=== PATIENT | male | born 1950 | race Caucasian/White ===

== ENCOUNTER 2020-11-09 11:28 | Day surgery (SDC) | payer MEDICARE ==
[~2020-11-09] VITALS: Ht 172.7 cm; Wt 87.2 kg
[~2020-11-09 11:28] MED LIST: ARTHROTEC 550 MG/TAB PO; ASPIRIN 32325 MG/TAB PO; B COMPLEX #11 TA1 PO; CIPRO 500MG TA500 MG PO; CRANBERRY1 POW PO; HCTZ 25MG TAB25 MG PO; MULTIPLE VITAMI1 CAP PO; NATURAL SAW PA160 MG PO; NORCO 325 MG-101 TAB PO; PERCOCET 325 MG1 TA2 PO; SENOKOT S 50 MG1 TAB PO; TENORMIN 5050 MG/TAB PO; VITAMIN C500 MG PO; [UNRECOGNIZED DRUG - OTHER] PO
[2020-11-09] MEDS ORDERED: NORVASC 10MG10 MG PO (11:56)
[2020-11-09] MEDS ORDERED: ARTHROTEC 775 MG/TAB PO (11:56)
[2020-11-09] MEDS ORDERED: NORCO 325 MG-101 TAB PO (11:58)
[2020-11-09] MEDS ORDERED: NORVASC2.5 MG PO (11:59)
[2020-11-09] MEDS ORDERED: ASPIRIN 32325 MG/TAB PO (11:59)
[2020-11-09 12:16] VITALS: BP 128/81; PULSE 86; TEMP 98.6
[2020-11-09 13:57] VITALS: BP 119/98; PULSE 90; TEMP 97.6
--- NOTE | 2020-11-09 13:57 | NUR ---
TO RM 7 PER CART FROM OR. ALERT ORIENTED X 3, TALKING TO STAFF AND . REFUSED TO EAT OR DRINK ANYTHING AT THIS TIME. C/O PAIN 02/05. DENIES NAUSEA
[2020-11-09 14:15] VITALS: BP 132/97; PULSE 84
--- NOTE | 2020-11-09 14:15 | NUR ---
DRESSINGS CLEAN DRY INTACT. RECEIVED OJ AND TOLERATED WELL. DR ROGERS INTO TALK TO PATIENT AND HIS .
[2020-11-09 14:30] VITALS: BP 139/86; PULSE 84
--- NOTE | 2020-11-09 14:30 | NUR ---
C/O PAIN 03/08- RECEIVED NORCO ORDERED
[2020-11-09 14:40] VITALS: BP 139/86; PULSE 78
--- NOTE | 2020-11-09 14:40 | NUR ---
STATED THE PAIN IS BETTER AND ASKING TO GO HOME. C/O PAIN 01/06 RECEIVED DISCHARGE INSTRUCTIONS WITH AT BEDSIDE.
--- NOTE | 2020-11-09 14:50 | NUR ---
DISCHARGED PER WC BY NURSING STAFF TO PRIVATE CAR IN CARE OF ANGELA.
== END 2020-11-09 15:19 | disposition home or self-care (01) ==
LOC: SDCO 11:28
DX: C09.9 Malignant neoplasm of tonsil, unspecified (principal); C77.0 Secondary and unspecified malignant neoplasm of lymph nodes of head, face and neck; I10 Essential (primary) hypertension; G47.33 Obstructive sleep apnea (adult) (pediatric); M25.552 Pain in left hip; M25.551 Pain in right hip; M25.562 Pain in left knee; M25.561 Pain in right knee; Z85.46 Personal history of malignant neoplasm of prostate; Z79.82 Long term (current) use of aspirin; Z85.820 Personal history of malignant melanoma of skin; Z79.1 Long term (current) use of non-steroidal anti-inflammatories (NSAID); Z79.899 Other long term (current) drug therapy; Z98.62 Peripheral vascular angioplasty status; Z79.891 Long term (current) use of opiate analgesic
CPT/HCPCS: C1788; J0690; J1644; J2704; J7120

== ENCOUNTER 2021-01-11 05:34 | Day surgery (SDC) | payer MEDICARE ==
[~2021-01-11] VITALS: Ht 170.2 cm; Wt 74.3 kg
[~2021-01-11 05:34] MED LIST changes: +ARTHROTEC 775 MG/TAB PO; +NORVASC 10MG10 MG PO; +NORVASC2.5 MG PO
[2021-01-11 06:34] LABS: HEMOGLOBIN 10.4 g/dl (13.5-18.0); MEAN CELL VOLUME 94 fl (80.0-100.0); MEAN CORPUSCULAR HEMOGLOBIN 31 pg (27.0-31.0); MEAN CORPUSCULAR HGB CONC 33 g/dl (33.0-37.0); MEAN PLATELET VOLUME 9.1 fl (7.4-10.4); PLATELET COUNT 387 K/mm3 (130-400); RED BLOOD COUNT 3.37 M/mm3 (4.20-5.60)
[2021-01-11 06:38] VITALS: BP 118/69; PULSE 109; TEMP 98.2
[2021-01-11 06:39] LABS: HEMATOCRIT 31.8 % (42.0-52.0)
[2021-01-11] MEDS ORDERED: ROXICODONE 55 MG/TAB PO (06:47)
[2021-01-11 07:01] LABS: ALBUMIN 3.8 gm/dL (3.5-5.0); MAGNESIUM 2.3 mg/dL (1.6-2.3)
[2021-01-11 07:38] LABS: BAND 5 % (0-10); LYMPHOCYTE 1 % (20.0-51.0); NEUTROPHILS 91 % (42.0-75.2)
[2021-01-11 07:39] LABS: ANISOCYTOSIS 1+; PLATELET ESTIMATE NORMAL (NORMAL)
[2021-01-11 07:53] VITALS: BP 113/62; PULSE 89; TEMP 97.8
--- NOTE | 2021-01-11 07:53 | NUR ---
TO RM 8 PER CART FROM OR. ALERT ORIENTED X3, TALKING TO STAFF. RECEIVED WATER AND TAKING SIPS.
[2021-01-11 08:10] VITALS: BP 97/64; PULSE 93
--- NOTE | 2021-01-11 08:10 | NUR ---
SISTER AT BEDSIDE. CONTINUES TO TAKE SIPS.
[2021-01-11 08:25] VITALS: BP 117/69; PULSE 85
--- NOTE | 2021-01-11 08:25 | NUR ---
RESTING QUIETLY AND TALKING TO SISTER.
[2021-01-11 08:30] VITALS: BP 121/72; PULSE 85
--- NOTE | 2021-01-11 08:42 | NUR ---
ROCKY THE DISPLAY DECORATOR TALKING WITH PATIENT AND SISTER. MERARI FROM [employer] TALKING WITH PATIENT AND SISTER.
[2021-01-11 09:10] VITALS: BP 126/67; PULSE 85
[2021-01-11 09:24] LABS: ALBUMIN 3.8 gm/dL (3.5-5.0); BILIRUBIN,TOTAL 0.3 mg/dL (0.0-1.0); CALCIUM 9.4 mg/dL (8.4-10.2); CREATININE, serum 2.62 (0.66-1.25); POTASSIUM 4.5 mmol/L (3.4-5.0); TOTAL PROTEIN 7.5 gm/dL (6.4-8.2)
--- NOTE | 2021-01-11 09:30 | NUR ---
RECEIVED INSTRUCTIONS OF HOW TO USE PEG TUBE. PATIENT AND SISTER VERBALIZED UNDERSTANDING. RECEIVED 60CC SYRINGES X2 CUPS AND MED CUPS.
--- NOTE | 2021-01-11 09:45 | NUR ---
RECEIVED DISCHARGE INSTRUCTIONS AND VERBALIZED UNDERSTANDING. SISTER AT BEDSIDE DURING ALL THE INSTRUCTIONS.
--- NOTE | 2021-01-11 09:50 | NUR ---
FLUSHED PORT WITH NS 10CC FOLLOWED BY HEPARIN 500UNITS AND COVERED WITH BANDAID.
--- NOTE | 2021-01-11 10:14 | NUR ---
DISCHARGED PER WC BY NURSING STAFF TO PRIVATE CAR IN CARE OF SISTER.
--- NOTE | 2021-01-11 11:01 | NUR ---
LABS FAXED TO DR OWENS OFFICE
--- NOTE | 2021-01-11 15:53 | NUR ---
Donor Relations Manager consulted for the patient due to having peg tub placed. EVA met with the patient and his sister, [place]. Dietitian, Cecy present and provided education. The patient is independent and declined home health services. The patient states his , Leesa and sister will provide support if needed. Enteral feeding order to be sent to [facility]. Referral sent. 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 There are no additional needs.
== END 2021-01-11 10:18 | disposition home or self-care (01) ==
LOC: SDCO 05:34
PROVIDERS: Internal Medicine; Surgery
DX: R13.19 Other dysphagia (principal); C09.9 Malignant neoplasm of tonsil, unspecified; C77.0 Secondary and unspecified malignant neoplasm of lymph nodes of head, face and neck; R63.4 Abnormal weight loss; I10 Essential (primary) hypertension; M19.90 Unspecified osteoarthritis, unspecified site; G89.29 Other chronic pain; M54.9 Dorsalgia, unspecified; Z79.891 Long term (current) use of opiate analgesic; Z79.899 Other long term (current) drug therapy; Z79.82 Long term (current) use of aspirin; Z85.46 Personal history of malignant neoplasm of prostate; Z80.8 Family history of malignant neoplasm of other organs or systems; Z80.3 Family history of malignant neoplasm of breast; Z83.3 Family history of diabetes mellitus
CPT/HCPCS: J1644; J2405; J2704; J3010; J7120

== ENCOUNTER → 2021-08-02 | Outpatient (CLI) | payer MEDICARE ==
[~2021-08-02] MED LIST changes: +ROXICODONE 55 MG/TAB PO
== END ==
LOC: COL.RAD 11:25
DX: N28.1 Cyst of kidney, acquired (principal); N18.4 Chronic kidney disease, stage 4 (severe)

== ENCOUNTER → 2022-07-17 | Outpatient (CLI) | payer MEDICARE ==
[~2022-07-17] MED LIST changes: +PRIL40 PO
== END ==
LOC: COL.RAD 13:32
DX: Z43.1 Encounter for attention to gastrostomy (principal); N28.1 Cyst of kidney, acquired
CPT/HCPCS: J2405; J2704; J3010

== ENCOUNTER 2022-07-18 08:24 | Day surgery (SDC) | payer MEDICARE ==
[~2022-07-18] VITALS: Ht 172.7 cm; Wt 70.0 kg
[~2022-07-18 08:24] MED LIST changes: -PRIL40 PO
[2022-07-18] MEDS ORDERED: PRIL40 PO (08:57)
--- NOTE | 2022-07-18 08:58 | NUR ---
Dr. Gallardo in the room and PEG tube removed. Unable to place new tube. Will have to go the OR for EGD and gastrostomy tube placement.
--- NOTE | 2022-07-18 09:30 | NUR ---
Port a catheter accessed and blood returned. 1000cc's LR infusing at O. Patient readied for surgery and consent signed. Spouse informed.
[2022-07-18 09:54] VITALS: BP 147/90; PULSE 65; TEMP 97.9
[2022-07-18 10:25] VITALS: BP 108/77; PULSE 82
--- NOTE | 2022-07-18 10:25 | NUR ---
Patient returns to room 6 per cart after EGD with peg tube replacement. Dressing clean and dry on peg tube site. IV fluids infusing right port a cath right chest. Taking water. Denies pain or nausea. Able to swallow without difficulty. Siderails up x2 and call light in reach. Reading magazie and awaits spouse's return.
[2022-07-18 10:40] VITALS: BP 119/92; PULSE 70
--- NOTE | 2022-07-18 10:40 | NUR ---
Reads magazine. Continues to deny pain or nausea. Dressing clean and dry.
[2022-07-18 10:55] VITALS: BP 113/89; PULSE 73
--- NOTE | 2022-07-18 10:55 | NUR ---
States he is ready to get dressed and wishes to go home. Port a cath deaccessed after being flushed with Heparin and Normal saline per protocol. Bandaid applied to site.
--- NOTE | 2022-07-18 11:35 | NUR ---
Dismissal instructions given and patient dresses self. Denies questions. Al follow up with Dr. Gallardo as needed.
--- NOTE | 2022-07-18 11:38 | NUR ---
Patient dismissed to home driven by spouse and taken to vehicle per wheelchair and assisted into car with instructions in hand.
== END 2022-07-18 11:38 | disposition home or self-care (01) ==
LOC: SDCO 08:24 → EDSTATUS 09:00 → SDCO 11:38
DX: K94.23 Gastrostomy malfunction (principal); Y83.3 Surgical operation with formation of external stoma as the cause of abnormal reaction of the patient, or of later complication, without mention of misadventure at the time of the procedure; Z85.818 Personal history of malignant neoplasm of other sites of lip, oral cavity, and pharynx
CPT/HCPCS: J7120

== ENCOUNTER 2022-10-29 07:54 | Day surgery (SDC) | payer MEDICARE ==
[~2022-10-29] VITALS: Ht 172.7 cm; Wt 70.8 kg
[~2022-10-29 07:54] MED LIST changes: +PRIL40 PO
[2022-10-29 10:19] VITALS: BP 158/93; PULSE 89; TEMP 98.6
[2022-10-29 10:22] VITALS: BP 135/85; PULSE 94; TEMP 97.5
--- NOTE | 2022-10-29 10:22 | NUR ---
PATIENT RETURNED TO ROOM 6 FOLLOWING PROCEDURE. PATIENT ALERT AND ORIENTED, DENIES NAUSEA. BREATHING REGULAR AND UNLABORED. PATIENT REPORTED 2/10 TOLERABLE PAIN TO LOWER ABDOMEN. SEE CHART FOR VITAL SIGNS. NURSE HANDOFF COMPLETED IN PATIENT ROOM. PATIENT HAD APPLESAUCE AND ORANGE JUICE, BOTH TOLERATED WELL. CALL LIGHT IN REACH
[2022-10-29 10:30] VITALS: BP 133/81; PULSE 87
[2022-10-29] MEDS ORDERED: NORCO 325 MG-101 TAB PO (10:36)
[2022-10-29 11:00] VITALS: BP 140/81; PULSE 79
[2022-10-29 11:15] VITALS: BP 141/80; PULSE 82
[2022-10-29 11:30] VITALS: BP 146/86; PULSE 86
--- NOTE | 2022-10-29 11:30 | NUR ---
PATIENT RATES PAIN 2/10 TOLERABLE ACHING TO LOWER ABDOMEN. RIGHT UPPER CHEST MEDIPORE DRESSING CLEAN, DRY AND INTACT. LOWER ABDOMINAL MEDIPORE DRESSING CLEAN, DRY AND INTACT. PATIENT AMBULATED TO THE RESTROOM WITH STEADY GAIT AND VOIDED WITHOUT DIFFICULTY. DISCHARGE TEACHING COMPLETED WITH PRINTED EDUCATION SENT HOME WITH PATIENT. PATIENT VERBALIZED UNDERSTANDING OF TEACHING. IV REMOVED. PATIENT CHANGED INTO PERSONAL CLOTHING AND WAS DISCHARGED HOME WITH TRANSPORT.
== END 2022-10-29 11:40 | disposition home or self-care (01) ==
LOC: SDCO 07:54
DX: K40.90 Unilateral inguinal hernia, without obstruction or gangrene, not specified as recurrent (principal); Z45.2 Encounter for adjustment and management of vascular access device; I10 Essential (primary) hypertension; G47.33 Obstructive sleep apnea (adult) (pediatric); Z85.818 Personal history of malignant neoplasm of other sites of lip, oral cavity, and pharynx
CPT/HCPCS: C1781; J0690; J1100; J2405; J2704; J3010; J7120

== ENCOUNTER → 2024-05-07 | Outpatient (CLI) | payer MEDICARE ==
[2024-05-07] VITALS (15 sets, daily range): BP systolic 149–191; BP diastolic 83–99; PULSE 56–81; TEMP 98
[~2024-05-07] VITALS: Ht 172.7 cm; Wt 69.0 kg
[~2024-05-07] MED LIST changes: +COZAAR 50MG50 MG/TAB PO; +Gelatin Sponge,Absorbable Size 12-7 SPONGE TP SCH; +SYNTHROID 0.0.025 MG PO; +ZOHYDRO ER10 MG PO
[2024-05-07 09:11] LABS: PROTHROMBIN TIME 11.4 SECONDS (9.7-12.8)
--- NOTE | 2024-05-07 10:54 | NUR ---
SPECIMEN WAS COLLECTED AT 1009. AT 1011, DR. PALACIOS INSERTED SURGIFOAM. PATIENT ENDORSED NO PAIN DURING THE PROCEDURE.
--- NOTE | 2024-05-07 12:28 | NUR ---
PATIENT ESCORTED IN WHEELCHAIR BY NURSE TO HIS RIDE. PATIENT GOT INTO FRONT PASSENGER SEAT WITHOUT ANY ISSUES OR ASSISTANCE. PATIENT HAS ALL OF HIS PERSONAL ITEMS. PATIENT DENIES BEING IN ANY PAIN. BANDAGE REMAINS CLEAN, DRY, AND INTACT. IV REMOVED WITHOUT ANY ISSUE. ALL NEEDS MET.
== END ==
LOC: COL.RAD 07:53
PROVIDERS: Radiology Radiation Oncology
DX: C61 Malignant neoplasm of prostate (principal); C09.0 Malignant neoplasm of tonsillar fossa